=== PATIENT | female | born 1980 | race African-American/Black ===

== ENCOUNTER 2019-06-23 12:14 | Emergency (ER) | payer OTHER ==
[2019-06-23 12:29] VITALS: BP 150/79; PULSE 86; TEMP 98.5; BMI 28.7
[2019-06-23] MEDS ORDERED: CYCLOBENZAPRINE HCL 10 MG TABLET (FP) PO ONE (12:35)
[2019-06-23] MEDS ORDERED: KETOROLAC TROMETHAMINE 60 MG/2 ML VIAL IM ONE (12:35)
[2019-06-23] MEDS ORDERED: KETOROLAC TROMETHAMINE 60 MG/2 ML VIAL ONE (12:36)
[2019-06-23] MEDS ORDERED: CYCLOBENZAPRINE HCL 10 MG TABLET (FP) ONE (12:36)
--- NOTE | 2019-06-23 12:43 | PDOC ---
History of Present Illness - General Chief Complaint: Back Pain Stated Complaint: UPPER BACK PAIN Time Seen by Provider: 06/23/19 12:28 History Source: Patient - History of Present Illness Occurred: reports: other Pain Location: reports: back Past History - Past Medical History Allergies/Adverse Reactions: Allergies Allergy/AdvReac Type Severity Reaction Status Date / Time Sulfa (Sulfonamide Allergy Verified 06/23/19 12:29 Antibiotics) Home Medications: Ambulatory Orders Acetaminophen [Tylenol -] 1,000 mg PO Q6H #30 tablet 06/23/19 Cyclobenzaprine HCl [Flexeril 10 mg] 10 mg PO HS #9 tablet 06/23/19 Tramadol HCl 50 mg PO Q6H #15 tablet MDD 200mg 06/23/19 COPD: No HTN: Yes - Surgical History Abdominal Surgery: Yes (gastric sleeve 10/2017) - Psycho Social/Smoking Cessation Hx Smoking History: Never smoked Hx Alcohol Use: No Drug/Substance Use Hx: No Review of Systems - Review of Systems Constitutional: No: Chills, Fever Respiratory: No: Shortness of Breath Cardiac (ROS): No: Chest Pain ABD/GI: No: Nausea, Vomiting, Abdominal cramping Musculoskeletal: Yes: Back Pain Neurological: No: Numbness, Tingling, Weakness *Physical Exam - Vital Signs Last Vital Signs Temp Pulse Resp BP Pulse Ox 98.5 F 86 18 150/79 100 06/23/19 12:26 06/23/19 12:26 06/23/19 12:26 06/23/19 12:26 06/23/19 12:26 - Physical Exam General Appearance: Yes: Appropriately Dressed, Mild Distress HEENT: positive: Normal Voice Neck: positive: Supple Respiratory/Chest: positive: Lungs Clear, Normal Breath Sounds. negative: Respiratory Distress Cardiovascular: positive: Regular Rate, S1, S2 Gastrointestinal/Abdominal: positive: Soft. negative: Tender Musculoskeletal: positive: Vertebral Tenderness (to mid upper back and over R shoulder blade). negative: CVA Tenderness Integumentary: positive: Dry, Warm Neurologic: positive: Fully Oriented, Alert, Normal Mood/Affect, Motor Strength 5/5 Medical Decision Making - Medical Decision Making 06/23/19 12:52 38-year-old female, s/p weight loss surgery remotely, s/p tubal ligation, here with back pain. Patient states for the past several days have had mid upper back pain radiating to right upper back and to right chest, hurts to touch and with movement. Taking Tylenol with no relief. No trauma or other obvious inciting factors. No history of similar pain. Denies chest pain shortness of breath diaphoresis nausea vomiting. No symptoms fever or chills see exam M/l MSK back pain No red flags at this time -dc w/ pain control -PMD f/u as needed 06/23/19 12:55 Discharge - Discharge Information Problems reviewed: Yes Clinical Impression/Diagnosis: Back pain Qualifiers: Back pain location: thoracic back pain Chronicity: unspecified Back pain laterality: right Qualified Code(s): M54.6 - Pain in thoracic spine Condition: Good Disposition: HOME - Additional Discharge Information Prescriptions: Acetaminophen [Tylenol -] 1,000 mg PO Q6H #30 tablet Cyclobenzaprine HCl [Flexeril 10 mg] 10 mg PO HS #9 tablet Tramadol HCl 50 mg PO Q6H #15 tablet MDD 200mg - Follow up/Referral - Patient Discharge Instructions Patient Printed Discharge Instructions: Thoracic Back Pain Additional Instructions: Take medication as directed. If your pain continues, please follow-up with your PMD - Post Discharge Activity
[2019-06-23] MEDS ORDERED: traMADol HCL 50 MG TABLET PO ONE (12:44)
[2019-06-23] MEDS ORDERED: traMADol HCL 50 MG TABLET ONE (12:53)
== END 2019-06-23 12:55 | disposition home or self-care (01) ==
LOC: JERFT 12:14
PROC: 3E0233Z Introduction of Anti-inflammatory into Muscle, Percutaneous Approach (ICD-10-PCS; principal; 2019-06-23)
DX: M54.6 Pain in thoracic spine (principal); Z98.84 Bariatric surgery status; I10 Essential (primary) hypertension; Z88.2 Allergy status to sulfonamides
CPT/HCPCS: 36415; 87389; 99282-25

== ENCOUNTER 2022-07-16 08:34 | Emergency (ER) | payer OTHER ==
[2022-07-16 08:43] VITALS: RESP 18; TEMP 97.8; BMI 29.2
[2022-07-16] MEDS ORDERED: diphenhydrAMINE HCL 25 MG CAPSULE (FP) PO ONE ×2 (08:55→09:15)
[2022-07-16] MEDS ORDERED: DEXAMETHASONE SOD PHOSPHATE 10 MG/1 ML VIAL IM ONE (08:55)
[2022-07-16] MEDS ORDERED: FAMOTIDINE 20 MG TABLET PO ONE (08:55)
[2022-07-16] MEDS ORDERED: FAMOTIDINE 20 MG TABLET ONE (09:15)
[2022-07-16] MEDS ORDERED: DEXAMETHASONE SOD PHOSPHATE 10 MG/1 ML VIAL ONE (09:15)
[2022-07-16] MEDS ORDERED: ONDANSETRON *ODT* 4 MG TABLET SL ONE (09:58)
[2022-07-16] MEDS ORDERED: ONDANSETRON *ODT* 4 MG TABLET ONE (10:00)
[2022-07-16 10:11] VITALS: BP 134/99; PULSE 79
== END 2022-07-16 10:17 | disposition home or self-care (01) ==
LOC: JER 08:34
PROC: 3E023GC Introduction of Other Therapeutic Substance into Muscle, Percutaneous Approach (ICD-10-PCS; principal; 2022-07-16)
DX: T78.40XA Allergy, unspecified, initial encounter (principal)
CPT/HCPCS: 99284-25; J1100; Q0162